=== PATIENT | female | born 1995 | race Two or more races ===

== ENCOUNTER 2023-04-12 20:05 | Emergency (ER) | payer BC, SELFPAY ==
[2023-04-12] VITALS (10 sets, daily range): BP systolic 103–135; BP diastolic 61–84; PULSE 80; RESP 18; TEMP 36.6; O2SAT 94–98; BMI 29.5
--- NOTE | 2023-04-12 22:06 | ED.BACK1 ---
HPI - Back Pain/Injury General Chief Complaint: Back Pain/Injury Stated Complaint: SEVERE BACK PAIN Time Seen by Provider: 04/12/23 21:41 Source: patient Mode of arrival: Wheelchair Limitations: no limitations History of Present Illness HPI Narrative: patient reports history of chronic back pain with occ flare up. States known degenerative disc disease of her back for past 3 years. States she was referred to PT but has not been able to perform PT because she has to work. Flare up again today of her back pain. Not able to relate the pain to any particular injury. Similar to past episodes. No involvement of her lower extremities and no loss of control or bowel or bladder MD elicited complaint: Reports back pain Pertinent past history: Reports prior back pain Related Data Allergies Allergy/AdvReac Type Severity Reaction Status Date / Time Sulfa (Sulfonamide AdvReac Intermediate Verified 04/12/23 20:15 Antibiotics) Review of Systems ROS Status of ROS 10 or more systems reviewed and unremarkable except as noted in history and below PFSH PFSH Social History Smoking status: Current every day smoker Exam Constitutional Vital Signs, click to edit/add: Last Vital Signs Temp 97.8 F 04/12/23 20:15 Pulse 80 04/12/23 20:15 Resp 18 04/12/23 20:15 BP 143/75 H 04/13/23 00:30 Pulse Ox 95 04/13/23 00:40 Common normals: oriented x3, healthy appearing, alert and well nourished Other: patient in obvious discomfort related to her back HENMT Common normals: normocephalic and head/scalp atraumatic Eye Common normals: EOMs intact bilaterally and conjunctivae normal Respiratory Common normals: normal respiratory effort, no retractions, no use of accessory muscles and clear to auscultation bilaterally Cardio Common normals: regular rate, regular rhythm, S1 normal heart sound and S2 normal heart sound GI Common normals: Normal to inspection, nondistended, normoactive bowel sounds present, soft to palpation and non-tender Back & Pelvis Other: tenderness lower lumbar spine Extremity Common normals: normal to inspection and full ROM Neuro Common normals: oriented x3, CN's II-XII intact bilaterally, moves all extremities, no focal motor deficits and no sensory deficits noted Psych Appearance: grossly normal Course Vital Signs Vital signs: Vital Signs Temperature 97.8 F 04/12/23 20:15 Pulse Rate 80 08/14/23 20:15 Respiratory Rate 18 04/12/23 20:15 Blood Pressure 103/61 04/12/23 20:15 Pulse Oximetry 97 04/12/23 20:15 Temperature 97.8 F 04/12/23 20:15 Pulse Rate 80 04/12/23 20:15 Respiratory Rate 18 04/12/23 20:15 Blood Pressure 143/75 H 04/13/23 00:30 Pulse Oximetry 95 04/13/23 00:40 MDM - Back Pain/Injury MDM Narrative Medical decision making narrative: patient has past history of chronic recurrent back pain. Presents with acute lower back pain tonight reminiscent of past flares of back pain. Pain treated and improved prior to discharge and patient is to follow up with her family doctor Differential Diagnosis Differential diagnosis: Likely strain of lumbar region Lab Data Labs: Lab Results 04/12/23 Range/Units 22:18 WBC 8.7 (4.0-11.0) 10^3/uL RBC 4.26 (4.20-5.40) 10^6/uL Hgb 13.6 (12.0-16.0) g/dL Hct 39.6 (36.0-48.0) % MCV 93.0 (81.0-99.0) fL MCH 31.9 (26.7-34.0) pg MCHC 34.3 (29.9-35.2) g/dL RDW 12.7 (11.0-15.0) % Plt Count 256 (150-450) 10^3/uL MPV 9.0 L (9.5-13.5) fL Neut % (Auto) 57.9 (43.0-75.0) % Lymph % (Auto) 32.6 (20.5-60.0) % [place] % (Auto) 6.4 (1.7-12.0) % Eos % (Auto) 2.3 (0.9-7.0) % Baso % (Auto) 0.5 (0.2-2.0) % Neut # (Auto) 5.0 (1.4-6.5) 10^3/uL Lymph # (Auto) 2.8 (1.2-3.8) 10^3/uL [place] # (Auto) 0.6 (0.3-0.8) 10^3/uL Eos # (Auto) 0.2 (0.0-0.7) 10^3/uL Baso # (Auto) 0.0 (0.0-0.1) 10^3/uL Abs Immat Gran (auto) 0.03 (0.00-0.03) 10^3/uL Imm/Tot Granulo (auto) 0.3 (0.0-0.5) % ESR 12 (<=20) mm/hr Sodium 139 (136-145) mmol/L Potassium 3.2 L (3.5-5.1) mmol/L Chloride 102 (98-107) mmol/L Carbon Dioxide 25.0 (21.0-32.0) mmol/L Anion Gap 15.2 BUN 13.0 (7.0-18.0) mg/dL Creatinine 0.83 (0.55-1.02) mg/dL Est GFR ( Amer) >60 (>=60) Est GFR (Non-Af Amer) >60 (>=60) BUN/Creatinine Ratio 15.7 Glucose 105 (74-106) mg/dL Calcium 8.2 L (8.5-10.1) mg/dL C-Reactive Protein <1.0 (<=1.0) mg/dL Discharge Plan Discharge Chief Complaint: Back Pain/Injury Clinical Impression: Back pain Patient Disposition: Home, Self-Care Instructions: Acute Low Back Pain (ED) Additional Instructions: follow up with Dr Hoff for recheck Stand Alone Forms: Portal Instructions Referrals: Harmeet Hoff MD [Primary Care Provider] - 1 week
[2023-04-12 22:25] LABS: Basophils Percent Auto 0.5 % (0.2-2.0); Eosinophils Absolute Auto 0.2 10^3/uL (0.0-0.7); Eosinophils Percent Auto 2.3 % (0.9-7.0); Hematocrit 39.6 % (36.0-48.0); Hemoglobin 13.6 g/dL (12.0-16.0); Immature Granulocytes Abs Auto 0.03 10^3/uL (0.00-0.03); Immature Granulocytes Pct Auto 0.3 % (0.0-0.5); Lymphocytes Absolute Auto 2.8 10^3/uL (1.2-3.8); Lymphocytes Percent Auto 32.6 % (20.5-60.0); Mean Corpuscular HGB Conc 34.3 g/dL (29.9-35.2); Mean Corpuscular Hemoglobin 31.9 pg (26.7-34.0); Monocytes Absolute Auto 0.6 10^3/uL (0.3-0.8); Monocytes Percent Auto 6.4 % (1.7-12.0); Neutrophils Percent Auto 57.9 % (43.0-75.0); Platelet Count 256 10^3/uL (150-450); Red Blood Count 4.26 10^6/uL (4.20-5.40); Red Cell Distribution Width 12.7 % (11.0-15.0); White Blood Count 8.7 10^3/uL (4.0-11.0)
[2023-04-12] MEDS: METHYLPREDNISOLONE SOD SUCC PF 125 MG/2 ML VIAL IVP (22:27)
[2023-04-12] MEDS: MAGNESIUM SULFATE IN WATER 50 ML IV (22:27)
[2023-04-12] MEDS: FENTANYL CITRATE/PF 100 MCG/2 ML VIAL IV ×2 (22:27→23:39)
[2023-04-12 22:30] LABS: Erythrocyte Sedimentation Rate 12 mm/hr (<=20)
[2023-04-12 22:35] LABS: Anion Gap 15.2; BUN Creatinine Ratio 15.7; C Reactive Protein <1.0 mg/dL (<=1.0); Calcium 8.2 mg/dL (8.5-10.1); Chloride 102 mmol/L (98-107); Estimated GFR (African America >60 (>=60); Estimated GFR (Non-African Ame >60 (>=60); Glucose 105 mg/dL (74-106); Potassium 3.2 mmol/L (3.5-5.1); Sodium 139 mmol/L (136-145)
[2023-04-12] MEDS: KETOROLAC TROMETHAMINE 30 MG/ML VIAL IVP (23:55)
[2023-04-13] VITALS: BP 137/78; O2SAT 93
[2023-04-13 00:10] VITALS: O2SAT 95
[2023-04-13 00:20] VITALS: O2SAT 95
[2023-04-13 00:30] VITALS: BP 143/75; O2SAT 95
[2023-04-13 00:40] VITALS: O2SAT 95
== END 2023-04-13 01:50 | disposition home or self-care (01) ==
PROVIDERS: Emergency Provider Internal Medicine; PCP Family Medicine
DX: M54.9 Dorsalgia, unspecified (principal); G89.29 Other chronic pain; F17.210 Nicotine dependence, cigarettes, uncomplicated
CPT/HCPCS: 36415; 80048; 85025; 85652; 86140; 96365; 96375; 96376; 99284; J2930

== ENCOUNTER 2023-05-31 07:49 | Outpatient (RCR) | payer BC, SELFPAY | END 2023-07-14 15:06 | disposition home or self-care (01) | LOC: PT 07:49 | PROVIDERS: PCP Family Medicine; Visit Provider Family Medicine | DX: M51.9 Unspecified thoracic, thoracolumbar and lumbosacral intervertebral disc disorder (principal) | CPT/HCPCS: 97010; 97014; 97110; 97140; 97161 ==

== ENCOUNTER 2023-08-12 12:18 | Outpatient (OUT) | payer BC, SELFPAY ==
--- NOTE | 2023-08-12 12:20 | MR_ITS ---
[address] [address] Patient Name: CHAVO MANZO MRN: [id number] date: 1995 Sex: F Assigned Patient Location: MRI Current Patient Location: MRI Accession/Order Number: [id number] Exam Date: 08/12/2023 12:35 Report Date: 08/12/2023 16:14 At the request of: TANGELA NEWELL Procedure: MR lumbar spine wo con MRI LUMBAR SPINE WITHOUT CONTRAST: 08/12/2023 12:35 PM EST History:Lumbar Disc Disease M51.9 Comparison: None available . Sequences per routine unenhanced protocol. STUDY QUALITY: Good NUMBERING SCHEME: The lowest lumbar type vertebra is labeled L5 OSSEOUS: No marrow edema pattern or compression deformity. Diffusely, the marrow signal is modestly decreased on T1. SPINAL CANAL SIZE: Developmentally is average in size. LOWER THORACIC LEVELS: No central stenosis at T11-T12 as examined in sagittal plane only. T12-L1: No HNP or central stenosis. Modest facet DJD. L1-2: Significant loss of disc space height. Minimal retrolisthesis. Mild broad-based spondylosis and slight disc bulge. No central stenosis. Modest facet DJD L2-3: Slight retrolisthesis. Moderate loss of disc space height. Mild disc bulge. No HNP or central stenosis. Mild facet elongation L3-4: Minimal retrolisthesis. Mild loss of disc space height posteriorly. Slight disc bulge. Modest facet DJD. Facet elongation and mild overgrowth. No central stenosis. L4-5: Mild retrolisthesis. Modest disc bulge is mildly canted to the left. Posterior ligaments are not hypertrophied. Modest facet DJD with elongation and overgrowth. Sac is mildly trefoiled but no central stenosis. L4 foramina are mildly narrowed by disc bulge L5-S1: Moderate loss of disc space height. Mild retrolisthesis. Mild to modest disc bulge is slightly greater in the midline than elsewhere. No mass effect upon a tapered sac or upon either S1 root sleeve. Posterior ligaments are not hypertrophied. Facet joint narrowing and mild overgrowth. No central stenosis. Right L5 foramen is mildly to modestly narrowed by lateral extension of spondylosis and disc material. Left L5 foramen is mildly narrowed by lateral extension of spondylosis SPINAL CORD: No evidence of myelomalacia. No syrinx. CONAL TIP: At inferior L1 EXTRASPINAL SOFT TISSUES: No acute finding. OTHER: None MR/MR lumbar spine wo con IMPRESSION: 1. DDD at multiple levels, much greater than expected for age of 27. 2. Multilevel facet DJD, much greater than expected for age of 27. 3. Disc bulges at several levels as described. At L4-L5 this is mildly canted to the left. Electronically authenticated by: MARIBELL PALMER Date: 08/12/2023 16:14
== END 2023-08-12 12:19 | disposition home or self-care (01) ==
LOC: MRI 12:18
PROVIDERS: PCP Family Medicine; Visit Provider Family Medicine
DX: M51.9 Unspecified thoracic, thoracolumbar and lumbosacral intervertebral disc disorder (principal); M51.36 Other intervertebral disc degeneration, lumbar region; M47.816 Spondylosis without myelopathy or radiculopathy, lumbar region
CPT/HCPCS: 72148

== ENCOUNTER 2023-08-19 15:03 | Outpatient (OUT) | payer BC, SELFPAY ==
--- OUTSIDE RECORDS SUMMARY | 2023-08-19 15:08 | XMS_ITS | CCD ---
Author Name Unknown Address [address] [facility] [address] [place] [address] Organization [facility] Care Team Providers Care Virtual Customer Assistant Name Role Phone DR TANGELA DESOUZA Primary Care Unavailable DIAB ., SAM Admitting Unavailable DIAB ., SAM Attending Unavailable DIAB ., SAM Consulting Unavailable OSIRIS ., DR HONEYCUTT Admitting Unavailable HOY ., DR HONEYCUTT Attending Unavailable HOY ., DR HONEYCUTT Primary Care Unavailable ZABRINAY ., DR HONEYCUTT Consulting Unavailable Yaya Banda Consulting Unavailable Allergies Allergy Classification Reported Allergen(s) Allergy Type Date of Onset Reaction(s) Facility (1 source) Sulfonamides (Antibiotic) Drug allergy (disorder) [facility] Repository Problems Active Problems Problem Classification Problem Date Documented Date Episodic/Chronic Spondylosis; intervertebral disc disorders; other back problems (5 sources) Unspecified thoracic, thoracolumbar and lumbosacral intervertebral disc disorder; Translations: [Other intervertebral disc degeneration, lumbosacral region] Onset: 10-15-2022 Chronic Unclassified (3 sources) LOW BACK PAIN, UNSPECIFIED; Translations: [LOW BACK PAIN, UNSPECIFIED] Onset: 10-13-2022 Past or Other Problems Problem Classification Problem Date Documented Da te Episodic/Chronic Unclassified (1 source) LOW BACK PAIN, UNSPECIFIED; Translations: [LOW BACK PAIN, UNSPECIFIED] Onset: 10-09-2022 Results Test Name Value Interpretation Reference Range Facil ity XR LSPINE MIN 4 VIEWSon 09-30 XR LSPINE MIN 4 VIEWS EXAMINATION: XR LSPINE MIN 4 VIEWS HISTORY: Intervertebral disc disorder ; chronic lumbar pain increasing in severity COMPARISON: XR L-spine 09/26/2020 FINDINGS: BONES: Mild straightening of normal lordotic curvature of the upper lumbar spine. No fracture or spondylolisthesis. DISC SPACES: Moderate narrowing L1-2, L5-S1. Mild narrowing L2-3, L4-5. PARASPINOUS: Negative. No paraspinous abnormality is seen. OTHER: Negative. IMPRESSION: 1. Multilevel degenerative disc disease, greatest at L1-2 and L5-S1. Consider MRI for further evaluation. Electronically authenticated by: YAYA BANDA Date: 2022-10-15 11:59 Normal [facility] Encounters Encounter Date Encounter Type Care Provider Facility Start: 10-15-2022 End: 10-16-[address] TANGELA NEWELL . Facility:[facility] Start: 10-09-2022 End: 10-09-[address] TANGELA NEWELL . Facility:[facility] Payers Date Payer Category Payer Unknown [id number] 2.16.84 [id number] 1995 Unknown [id number] 2.16.84 [id number] 1957 Unknown [id number] Summary Purpose Family History No Family History Records Found Advance Directives No Advanced Directives Records Found Additional Source Comments INFORMATION SOURCE (unrecogn ized section and content) DATE CREATED AUTHOR 10/21/[address] [facility] FOR RECORDS PERTAINING TO PATIENTS WHO ARE OR HAVE BEEN ENROLLED IN A CHEMICAL DEPENDENCY/SUBSTANCEABUSE PROGRAM, SOME INFORMATION MAY BE OMITTED. This clinical summary was aggregated from multiple sources. Caution should be exercised in using it in the provision of clinical care. This summary normalizes information from multiple sources, and as a consequence, information in this document may materially change the coding, format and clinical context of patient data. In addition, data may be omitted in some cases. CLINICAL DECISIONS SHOULD BE BASED ON THE PRIMARY CLINICAL RECORDS. [employer] provides no warranty or guarantee of the accuracy or completeness of information in this document.
[2023-08-19 15:32] LABS: Erythrocyte Sedimentation Rate 40 mm/hr (<=20)
[2023-08-19 15:37] LABS: Uric Acid 3.4 mg/dL (2.6-6.0)
[2023-08-19 15:38] LABS: C Reactive Protein 0.63 mg/dL (<=0.50)
[2023-08-20 06:16] LABS: Antistreptolysin O Ab 306.3 IU/mL (0.0-200.0); Rheumatoid Factor (RF) <10.0 IU/mL (<14.0)
== END 2023-08-19 15:04 | disposition home or self-care (01) ==
LOC: LAB 15:04
PROVIDERS: PCP Family Medicine; Visit Provider Family Medicine
DX: M51.9 Unspecified thoracic, thoracolumbar and lumbosacral intervertebral disc disorder (principal)
CPT/HCPCS: 36415; 84550; 85652; 86038; 86060; 86140; 86430; 86431

== ENCOUNTER 2023-08-27 13:19 | Outpatient (OUT) | payer BC, SELFPAY ==
--- OUTSIDE RECORDS SUMMARY | 2023-08-27 13:23 | XMS_ITS | CCD ---
Author Name Unknown Address [address] [facility] [address] [place] [address] Organization [facility] Care Team Providers Care Litigation Secretary Name Role Phone DR TANGELA DESOUZA Primary [...] source) Sulfonamides (Antibiotic) Drug allergy (disorder) The [facility] Repository Problems Active Problems Problem Classification Problem [...] by: YAYA BANDA Date: 2022-10-15 11:59 Normal [facility] Encounters Encounter Date Encounter Type Care Provider Facility Start: 10-15-2022 End: 10-16-[address] TANGELA NEWELL . Facility:[facility] Start: 10-09-2022 End: 10-09-[address] TANGELA NEWELL . Facility:[facility] Payers Date Payer Category Payer Unknown [id number] [id number] [id number] 1995 Unknown [id number] 2.16.84 [id number] 1957 Unknown [id number] Summary Purpose Family History No Family History Records Found Advance Directives No Advanced Directives Records Found Additional Source Comments INFORMATION SOURCE (unrecogn ized section and content) DATE CREATED AUTHOR 10/21/2022 The [facility] FOR RECORDS PERTAINING TO PATIENTS WHO ARE [...] BE BASED ON THE PRIMARY CLINICAL RECORDS. [employer] provides no warranty or guarantee of the accuracy or completeness of information in this document.
[2023-08-27 14:05] LABS: Total Protein Urine Random 11.9 mg/dL (<=11.9)
[2023-08-28 09:12] LABS: Antistreptolysin O Ab 303.8 IU/mL (0.0-200.0)
== END 2023-08-27 13:20 | disposition home or self-care (01) ==
LOC: LAB 13:20
PROVIDERS: PCP Family Medicine; Visit Provider Family Medicine
DX: R76.8 Other specified abnormal immunological findings in serum (principal)
CPT/HCPCS: 36415; 84156; 86060; 86215

== ENCOUNTER 2023-09-06 11:27 | Outpatient (OUT) | payer BC, SELFPAY ==
--- OUTSIDE RECORDS SUMMARY | 2023-09-06 11:31 | XMS_ITS | CCD ---
Author Name Unknown Address [address] [facility] [address] [place] [address] Organization [facility] Care Team Providers Care Global Climate Change Researcher Name Role Phone DR TANGELA DESOUZA Primary [...] by: YAYA BANDA Date: 2022-10-15 11:59 Normal [facility] Encounters Encounter Date Encounter Type Care Provider Facility Start: 10-15-2022 End: 10-16-[address] TANGELA NEWELL . Facility:[facility] Start: 10-09-2022 End: 10-09-[address] TANGELA NEWELL . Facility:[facility] Payers Date Payer Category Payer Unknown [id number] 2.16.84 [id number] 1995 Unknown [id number] 2.16.84 [id number] 1957 Unknown [id number] Summary Purpose Family History No Family History Records Found Advance Directives No Advanced Directives Records Found Additional Source Comments INFORMATION SOURCE (unrecogn ized section and content) DATE CREATED AUTHOR 10/21/2022 The [facility] FOR RECORDS PERTAINING TO PATIENTS WHO [...] BE BASED ON THE PRIMARY CLINICAL RECORDS. [employer] provides no warranty or guarantee of the accuracy or completeness of information in this document.
--- NOTE | 2023-09-06 12:23 | PM.CN ---
Consult Note: HPI Data of Consult Patient: new to practice Consult date: 09/06/23 Requesting Physician: Andrzej Cruz MD Primary Care Provider: Harmeet Hoff MD Consult Narrative Reason for consult: Low back pain Narrative: 27yof who presents for evaluation. Worsening low back pain that has been ongoing for about ten years. Lumbar mri reviewed, which is significant for moderate facet arthropathy and disc degeneration in lower lumbar spine, quite significant given age. She recently completed 6 weeks of physical therapy in the past 3 months and continues in course of provider directed home exercises >6 weeks, with minimal benefit. Uses Aleve prn. Denies adverse med side effects. cc:: CC: Andrzej Cruz MD Review of Systems ROS Status of ROS 10 or more systems reviewed and unremarkable except as noted in history and below PFSH [facility] Social History Smoking status: Current every day smoker Meds Home Medications and Allergies Allergies Allergy/AdvReac Type Severity Reaction Status Date / Time Sulfa (Sulfonamide AdvReac Intermediate Verified 04/12/23 20:15 Antibiotics) Exam Narrative Exam Narrative: Psych-alert and oriented x 3. Attentive and appropriate, constitutionally normal, displays normal mood and affect per situation.? There are no obvious deficits in memory, reasoning, or intellect.? Skin-no obvious rashes, bruising, erythema noted to the patient's area of pain. Extremities- extremities are warm with minimal edema and palpable pulses. Lumbar-no significant tenderness to palpation noted in the lumbar spine and paraspinal musculature.? Pain is elicited with extension, and lateral rotation of the lumbar spine. Range of motion is slightly diminished with these motions due to pain. Facet loading maneuvers are positive bilaterally and do appear to be concordant with the patient's normal complaints of pain.? Coordination remains intact.? Gait remains non-antalgic. Assessment and Plan Assessment and Plan (1) Lumbar spondylosis: (2) Lumbar stenosis with neurogenic claudication: Plan 27yof who presents for evaluation. Failed conservative measures, as noted. Imaging reviewed, as noted. Evaluated by surgeon, not a surgical candidate. Given symptoms and imaging, prudent to attempt diagnostic bilateral L4-5, l5-S1 medial branch blocks under fluoroscopic guidance with intention of proceeding to radiofrequency ablation. She is in agreement. Meds reviewed, no changes. Follow up after procedure.
== END 2023-09-06 11:28 | disposition home or self-care (01) ==
LOC: PM 11:28
PROVIDERS: PCP Family Medicine; Visit Provider Anesthesiology
DX: M47.816 Spondylosis without myelopathy or radiculopathy, lumbar region (principal); M48.062 Spinal stenosis, lumbar region with neurogenic claudication
CPT/HCPCS: G0463

== ENCOUNTER 2023-09-13 09:57 | Day surgery (SDC) | payer BC, SELFPAY ==
--- OUTSIDE RECORDS SUMMARY | 2023-09-13 10:00 | XMS_ITS | CCD ---
Author Name Unknown Address [address] [place] [address] [address] [place] [address] Organization [facility] Care Team Providers Care Commercial Solar Sales Consultant Name Role Phone OSIRIS .DR HONEYCUTT Primary Care Unavailable DIAB ., SAM Admitting Unavailable DIAB ., SAM Attending Unavailable DIAB ., SAM Consulting Unavailable AZBRINAY ., DR HONEYCUTT Admitting Unavailable HOY ., DR HONEYCUTT Attending Unavailable HOY ., DR HONEYCUTT Primary Care Unavailable HOY ., DR HONEYCUTT Consulting Unavailable Yaya Banda Consulting Unavailable Nancy MACDONALD, Andrzej Prieto Attending Unavailable Allergies Allergy Classification Reported Allergen(s) Allergy Type Date of Onset Reaction(s) Facility (1 source) Sulfonamides (Antibiotic) Drug allergy (disorder) [facility] Repository Problems Active Problems Problem Classification Problem [...] by: YAYA BANDA Date: 2022-10-15 11:59 Normal [facility] Encounters Encounter Date Encounter Type Care Provider Facility Start: 09-06-2023 End: 2023 ambulatory Andrzej Cruz MD Facility: [facility] Start: 10-15-2022 End: 10-16-[address] TANGELA NEWELL . Facility: Start: 10-09-2022 End: 10-09-[address] ATNGELA NEWELL . Facility: Payers Date Payer Category Payer Unknown 1995 Unknown [id number] 2.16.84 [id number] 1995 Unknown [id number] 2.16.84 [id number] 1995 Unknown [id number] 2.16. [id number] 1957 Unknown [id number] Summary Purpose Family History No Family History Records FoundNo Family History Records Found Advance Directives No Advanced Directives Records FoundNo Advanced Directives Records Found Additional Source Comments INFORMATION SOURCE (unrecogn ized section and content) DATE CREATED AUTHOR 10/21/2022 The [facility] DATE CREATED AUTHOR AUTHOR'S ORGANIZ ATION 09/08/2023 [facility] FOR RECORDS PERTAINING TO PATIENTS WHO [...] BE BASED ON THE PRIMARY CLINICAL RECORDS. [employer] [facility]. provides no warranty or guarantee of the accuracy or completeness of information in this document.
[2023-09-13 10:37] VITALS: BP 118/67; PULSE 72; RESP 16; TEMP 36.4; O2SAT 98
[2023-09-13 10:40] LABS: HCG Qualitative NEGATIVE (NEGATIVE)
[2023-09-13 11:32] VITALS: BP 112/59; PULSE 55; RESP 18; O2SAT 96
[2023-09-13 11:35] VITALS: BP 118/67; PULSE 49; RESP 18; O2SAT 97
--- NOTE | 2023-09-13 11:35 | W.PM.PROCNOT ---
Date of procedure: 09/13/23 Pre-op diagnosis: Lumbar spondylosis Post-op diagnosis: same as pre-op Procedure: Procedure: Bilateral L4-5, L5-S1 medial branch block Medications: Bupivacaine 0.25% 6cc The patient was seen and examined in the preoperative holding area.? An informed consent was obtained and placed on the chart.? The patient was brought to the medical procedure unit and placed in the prone position.? A timeout was completed verifying correct patient, procedure site, positioning, plan, and special equipment.? Using aseptic technique, the needle was placed at left L4. Under direct fluoroscopic visualization a Quincke-tipped spinal needle was advanced to the junction of the superior articulating process with the transverse process at the designated medial branch segment.? Preceded by negative aspiration, the above-mentioned injectate was placed in 1 mL aliquots.? The procedure was repeated at left L5, S1.? The needle was removed and insertion site was covered. The same procedure, at the same levels, was completed on the right side. The patient was taken to the postprocedural recovery area and monitored for an appropriate length of time before found suitable for discharge in the company of a responsible adult. Anesthesia: Local Surgeon: Andrzej Cruz Pathology: none sent Condition: stable Disposition: no change
[2023-09-13] MEDS: LIDOCAINE HCL 2% PF 100 MG/5 ML VIAL 1 ML INJ (11:36)
[2023-09-13] MEDS: BUPIVACAINE HCL 0.25% PF 25 MG/10 ML VIAL 8 ML INJ (11:36)
== END 2023-09-13 11:39 ==
LOC: SURGOUT 09:57
PROVIDERS: PCP Family Medicine; Visit Provider Anesthesiology
DX: M47.816 Spondylosis without myelopathy or radiculopathy, lumbar region (principal)
CPT/HCPCS: 36415; 64493; 64494; 84703; J0665

== ENCOUNTER 2023-09-23 11:16 | Outpatient (OUT) | payer BC, SELFPAY ==
--- OUTSIDE RECORDS SUMMARY | 2023-09-23 11:23 | XMS_ITS | CCD ---
Author Name Unknown Address [address] [place] [address] [address] [place] [address] Organization [facility] Care Team Providers Care Band Saw Operator Cake Cutting Name Role Phone OSIRIS ., DR HONEYCUTT Primary Care Unavailable DIAB ., SAM Admitting Unavailable DIAB ., SAM Attending Unavailable DIAB ., SAM Consulting Unavailable HOY ., DR HONEYCUTT Admitting Unavailable HOY ., DR HONEYCUTT Attending Unavailable HOY ., DR HONEYCUTT Primary Care Unavailable HOY ., DR HONEYCUTT Consulting Unavailable Yaya Banda Consulting Unavailable Nancy MACDONALD, Andrzej Prieto Attending Unavailable Nancy MACDONALD, Andrzej Prieto Attending Unavailable Allergies Allergy Classification Reported Allergen(s) Allergy Type Date of Onset Reaction(s) Facility (1 source) Sulfonamides (Antibiotic) Drug allergy (disorder) [facility] Repository Problems Active Problems Problem Classification [...] YAYA BANDA Date: 2022-10-15 11:59 Normal [facility] Encounters Encounter Date Encounter Type Care Provider Facility Start: 09-13-2023 End: 09-14-2023 ambulatory Andrzej Cruz MD Facility: [facility] Start: 09-06-2023 End: 2023 ambulatory Andrzej Cruz MD Facility: [facility] Start: 10-15-2022 End: 10-16-[address] TANGELA NEWELL . Facility: Start: 10-09-2022 End: 10-09-[address] TANGELA NEWELL . Facility: Payers Date Payer Category Payer Unknown 1995 Unknown [id number] 2.16.84 [id number] 1995 Unknown [id number] 2.16.84 [id number] 1995 Unknown [id number] 2.16. [id number] 1995 Unknown [id number] 2.16. [id number] 1959 Unknown [id number] Summary Purpose Family History No Family History Records FoundNo Family History Records Found Advance Directives No Advanced Directives Records FoundNo Advanced Directives Records Found Additional Source Comments INFORMATION SOURCE (unrecogn ized section and content) DATE CREATED AUTHOR 10/21/2022 [facility] DATE CREATED AUTHOR 'S MONIK AKBAR 09/22/2023 [facility] FOR RECORDS PERTAINING TO PATIENTS WHO [...] BE BASED ON THE PRIMARY CLINICAL RECORDS. [employer] [facility]. provides no warranty or guarantee of the accuracy or completeness of information in this document.
--- NOTE | 2023-09-23 11:34 | P.CN_ITS ---
Consult Note: HPI Data of Consult Patient: known to practice within the last 3 years Consult date: 09/06/23 Requesting Physician: Bethany Moreno NP Primary Care Provider: Harmeet Hoff MD Consult Narrative Reason for consult: Low back pain Narrative: 28yof who presents for evaluation. Worsening low back pain that has been ongoing for about ten years. Lumbar mri reviewed, which is significant for moderate facet arthropathy and disc degeneration in lower lumbar spine, quite significant given age. She recently completed 6 weeks of physical therapy in the past 3 months and continues in course of provider directed home exercises >6 weeks, with minimal benefit. Uses Aleve prn. Denies adverse med side effects. Recently underwent bilateral L4-5 L5-S1 facet medial branch block #1 with 80% improvement in pain and functional ability 2 hours following the procedure. Patient would like to discuss the next steps working towards thermal RFA. cc:: CC: Bethany Moreno NP Review of Systems ROS Status of ROS 10 or more systems reviewed and unremark able except as noted in history and below Musculoskeletal Reports: back pain PFSH PFSH Surgical History H/O excision of ganglion cyst ?Z98.890 - Other specified postprocedural states (ICD-10) Social History Smoking status: Current every day smoker Meds Home Medications and Allergies Home Medications Medication Instructions Recorded Confirmed Type tizanidine 4 mg tablet 8 mg PO TID PRN muscle spasticity 09/06/23 09/13/23 History Allergies Allergy/AdvReac Type Severity Reaction Status Date / Time Sulfa (Sulfonamide AdvReac Intermediate Verified 09/13/23 10:36 Antibiotics) Exam Narrative Exam Narrative: Psych-alert and oriented x 3. Attentive and appropriate, constitutionally normal, displays normal mood and affect per situation.? There are no obvious deficits in memory, reasoning, or intellect.? Skin-no obvious rashes, bruising, erythema noted to the patient's area of pain. Extremities- extremities are warm with minimal edema and palpable pulses. Lumbar-no significant tenderness to palpation noted in the lumbar spine and paraspinal musculature.? Pain is elicited with extension, and lateral rotation of the lumbar spine. Range of motion is slightly diminished with these motions due to pain. Facet loading maneuvers are positive bilaterally and do appear to be concordant with the patient's normal complaints of pain.? Coordination remains intact.? Gait remains non-antalgic. Assessment and Plan Assessment and Plan (1) Lumbar spondylosis: Assessment and Plan: The patient has had over 3 months of moderate to severe low back pain with functional impairment and inadequate response to conservative care including NSAIDS (unless there are contraindication such as concurrent blood thinners), multiple oral or topical pain medications, and home exercise program/physical therapy.? Patient has completed >6 weeks of guided home exercise program and/or formal physical therapy program without relief of their symptoms.? I have reviewed the imaging of the lumbar spine and no red flags were identified.? The imaging reveals radiographic findings consistent with lumbar facet arthropathy The Oswestry Disability Index was completed, and the patient scored a 36%.? The patient noted the following:?? moderate pain, pain with ADLs, pain with lifting, pain with walking, pain impacting sleep. ? We discussed the risks and benefits of the procedure with the patient, and we are NOT planning on using sedation as outlined in the guidelines from Medicare unless there is a documented reason that sedation would be strongly recommended.?? ?The procedure will be completed with fluoroscopic guidance.? (2) Back pain: Plan 27yof who presents for evaluation. Failed conservative measures, as noted. Imaging reviewed, as noted. Evaluated by surgeon, not a surgical candidate. Given symptoms and imaging, prudent to attempt diagnostic bilateral L4-5, l5-S1 medial branch blocks under fluoroscopic guidance with intention of proceeding to radiofrequency ablation. She is in agreement. Meds reviewed, no changes. Follow up after procedure.
== END 2023-09-23 11:17 | disposition home or self-care (01) ==
LOC: PM 11:16
PROVIDERS: PCP Family Medicine; Visit Provider Nurse Practitioner
DX: M47.816 Spondylosis without myelopathy or radiculopathy, lumbar region (principal); M54.9 Dorsalgia, unspecified
CPT/HCPCS: G0463

== ENCOUNTER 2023-09-27 09:23 | Day surgery (SDC) | payer BC, SELFPAY ==
--- OUTSIDE RECORDS SUMMARY | 2023-09-27 09:26 | XMS_ITS | CCD ---
Author Name Unknown Address [address] [place] [address] [id number] [place] [address] Organization [facility] Care Team Providers Care Geriatric Social Work Professor Name Role Phone OSIRIS ., DR HONEYCUTT [...] source) Sulfonamides (Antibiotic) Drug allergy (disorder) [facility] Repository Problems Active Problems Problem Classification [...] YAYA BANDA Date: 2022-10-15 11:59 Normal [facility] Encounters Encounter Date Encounter Type Care Provider Facility Start: 09-13-2023 End: 09-14-2023 ambulatory Andrzej Cruz MD Facility: [facility] Start: 09-06-2023 End: 2023 ambulatory Andrzej Cruz MD Facility: [facility] Start: 10-15-2022 End: 10-16-[address] TANGELA NEWELL . Facility: Start: 10-09-2022 End: 10-09-[address] TANGELA NEWELL . Facility: Payers Date Payer Category Payer Unknown 1997 Unknown [id number] [id number] 1997 Unknown [id number] 1997 Unknown [id number] 1997 Unknown [id number] 1959 Unknown [id number] Summary Purpose Family History No Family History Records FoundNo Family History Records Found Advance Directives No Advanced Directives Records FoundNo Advanced Directives Records Found Additional Source Comments INFORMATION SOURCE (unrecogn ized section and content) DATE CREATED AUTHOR 10/21/2022 [facility] DATE CREATED AUTHOR 'S MONIK AKBAR 09/22/2023 [facility] FOR RECORDS PERTAINING TO PATIENTS WHO [...] BE BASED ON THE PRIMARY CLINICAL RECORDS. [facility]. provides no warranty or guarantee of the accuracy or completeness of information in this document.
[2023-09-27 09:47] LABS: HCG Qualitative NEGATIVE (NEGATIVE)
[2023-09-27 10:11] VITALS: BP 101/61; PULSE 69; RESP 16; TEMP 36.5; O2SAT 96
[2023-09-27] MEDS: LIDOCAINE HCL 2% PF 100 MG/5 ML VIAL 1 ML INJ (10:47)
[2023-09-27] MEDS: BUPIVACAINE HCL 0.25% PF 25 MG/10 ML VIAL 8 ML INJ (10:57)
[2023-09-27 10:58] VITALS: BP 112/67; BP 114/68; PULSE 55; PULSE 62; RESP 17; RESP 18; O2SAT 91; O2SAT 95
--- NOTE | 2023-09-27 10:59 | W.PM.PROCNOT ---
Date of procedure: 09/27/23 Pre-op diagnosis: Lumbar spondylosis Post-op diagnosis: same as pre-op Procedure: Procedure: Bilateral L4-5, L5-S1 medial branch block Medications: Bupivacaine 0.25% 6cc The patient was seen and examined in the preoperative holding area.? An informed consent was obtained and placed on the chart.? The patient was brought to the medical procedure unit and placed in the prone position.? A timeout was completed verifying correct patient, procedure site, positioning, plan, and special equipment.? Using aseptic technique, the needle was placed at left L4. Under direct fluoroscopic visualization a Quincke-tipped spinal needle was advanced to the junction of the superior articulating process with the transverse process at the designated medial branch segment.? Preceded by negative aspiration, the above-mentioned injectate was placed in 1 mL aliquots.? The procedure was repeated at left L5, S1.? The needle was removed and insertion site was covered. The same procedure, at the same levels, was completed on the right side. The patient was taken to the postprocedural recovery area and monitored for an appropriate length of time before found suitable for discharge in the company of a responsible adult. Anesthesia: Local Surgeon: Andrzej Cruz Pathology: none sent Condition: stable Disposition: no change
== END 2023-09-27 11:03 | disposition home or self-care (01) ==
PROVIDERS: PCP Family Medicine; Visit Provider Anesthesiology
DX: M47.816 Spondylosis without myelopathy or radiculopathy, lumbar region (principal)
CPT/HCPCS: 36415; 64493; 64494; 84703; J0665